=== PATIENT | male | born 1960 | race Caucasian/White ===

== ENCOUNTER 2018-11-02 22:54 | Emergency (ER) | payer OTHER ==
[~2018-11-02] VITALS: Wt 106.4 kg
[2018-11-03] MEDS ORDERED: KETOROLAC 60 MG INJ IM STA (01:31)
[2018-11-03] MEDS ORDERED: MED4DP PO (01:45)
[2018-11-03] MEDS ORDERED: HYDR-4011 PO (01:45)
[2018-11-03] MEDS ORDERED: NAPR-985 PO (01:45)
[2018-11-03] MEDS ORDERED: CYCL10TA7 PO (01:45)
[2018-11-03] MEDS ORDERED: DIAZEPAM 5 MG TAB PO ONE (02:00)
[2018-11-03] MEDS ORDERED: DEXAMETHASONE 10 MG/ML 1 ML INJ IM ONE (02:00)
--- NOTE | 2018-11-03 02:25 | ERD ---
ER Documentation Chief Complaint Chief Complaint LOWER BACK PAIN RADIATING AROUND TO RLQ X'S 1 DAY HPI 58-year-old male presenting with right-sided back pain times 2 days. Patient denies any numbness or tingling to his legs. He states the pain started yesterday but has subsided today. He has had back pain like this before. Patient has had a history of kidney stones. Denies any fevers. Denies any recent traumatic injuries. Denies any weakness or numbness to his extremities. Has normal urination bowel movement. No dysuria. Denies medical problems. NKDA. Surgical history knee surgery. Social history denies ROS All systems reviewed and are negative except as per history of present illness. Medications Home Meds Active Scripts Cyclobenzaprine Hcl* (Cyclobenzaprine Hcl*) 10 Mg Tablet, 10 MG PO TID, #15 TAB Prov:DOUGIE COLBY PA-C 11/03/18 Naproxen* (Naprosyn*) 500 Mg Tablet, 500 MG PO BID PRN for PAIN AND/OR INFLAMMATION, #30 TAB Prov:DOUGIE COLBY PA-C 11/03/18 Hydrocodone/Acetaminophen ([place] 5-325 Tablet) 1 Each Tablet, 1 TAB PO Q6H PRN for PAIN, #7 TAB Prov:DOUGIE COLBY PA-C 11/03/18 Methylprednisolone* (Medrol* DOSE PACK) 4 Mg/Dose-Pack Tab.ds.pk, 4 MG PO . DIRECTED, #1 PACKET Prov:DOUGIE COLBY PA-C 11/03/18 PMhx/Soc Medical and Surgical Hx: pt denies Medical Hx History of Surgery: Yes (left knee replacement, kidney stones removed and nighat eye laser) Anesthesia Reaction: No Hx Alcohol Use: No Hx Substance Use: No Smoking Status: Never smoker FmHx Family History: No diabetes, No coronary disease, No other Physical Exam Vitals Vital Signs Date Temp Pulse Resp B/P (MAP) Pulse Ox O2 O2 Flow FiO2 Time Delivery Rate 11/02/18 98.1 77 20 139/74 96 22:58 (95) Physical Exam GENERAL: The patient is well-appearing, well-nourished, in no acute distress CHEST: Clear to auscultation bilaterally. There are no rales, wheezes or rhonchi. HEART: Regular rate and rhythm. No murmurs, clicks, rubs or gallops. No S3 or S4. ABDOMEN:Soft, nontender and nondistended. Good bowel sounds. No rebound or guarding. No gross peritonitis. No gross organomegaly or masses. BACK: No midline or flank tenderness. Tender to palpation over right paraspinous muscles extending down right buttock. EXTREMITIES: Equal pulses bilaterally. There is no peripheral clubbing, cyanosis or edema. No focal swelling or erythema. Full range of motion. Grossly neurovascularly intact. NEUROLOGIC: Alert and oriented. Cranial nerves II through XII intact. Motor strength in all 4 extremities with 5 out of 5 strength. Sensation grossly intact. Normal speech and gait. Babinski negative. DTR 2+ throughout. SKIN: There is no apparent rash or petechiae. The skin is warm and dry. Results 24 hrs Current Medications Medications Dose Sig/Jamarcus Start Time Status Last (Trade) Ordered Route PRN Stop Time Admin Dose Reason Admin 10 mg ONCE ONCE 11/03/18 DC 11/03/18 Dexamethasone IM 02:00 01:37 (Decadron) 11/03/18 02:01 Diazepam 5 mg ONCE ONCE 11/03/18 DC 11/03/18 (Valium) PO 02:00 01:37 11/03/18 02:01 Ketorolac 60 mg ONCE STAT 11/03/18 DC 11/03/18 Tromethamine IM 01:31 01:38 (Toradol) 11/03/18 01:32 Procedures/MDM ER course: Toradol, Decadron and Valium given ED. On reevaluation patient's pain improved. MDM: 58-year-old male presenting back pain. Patient's pain is palpable and is worse with movement. I believe patient's pain is musculoskeletal and patient will be discharged with supportive medications. I have low suspicion for acute abdominal emergency. Patient is discharged stricter precautions and told to follow-up with primary care within 1-2 days for close evaluation. Patient is told if symptoms change or worsen to immediately return to ER. I do not feel there is indication for blood work or imaging. All questions answered at discharge Departure Diagnosis: Primary Impression: Back pain Condition: Stable Patient Instructions: Back Pain W/ Sciatica Referrals: [facility] YOU HAVE RECEIVED A MEDICAL SCREENING EXAM AND THE RESULTS INDICATE THAT YOU DO NOT HAVE A CONDITION THAT REQUIRES URGENT TREATMENT IN THE EMERGENCY DEPARTMENT. FURTHER EVALUATION AND TREATMENT OF YOUR CONDITION CAN WAIT UNTIL YOU ARE SEEN IN YOUR DOCTORS OFFICE WITHIN THE NEXT 1-2 DAYS. IT IS YOUR RESPONSIBILITY TO MAKE AN APPOINTMENT FOR FOLOW-UP CARE. IF YOU HAVE A PRIMARY DOCTOR --you should call your primary doctor and schedule an appointment IF YOU DO NOT HAVE A PRIMARY DOCTOR YOU CAN CALL OUR PHYSICIAN REFERRAL HOTLINE AT IF YOU CAN NOT AFFORD TO SEE A PHYSICIAN YOU CAN CHOSE FROM THE FOLLOWING [facility] [address] [facility]. [facility] [address] [facility] [address] [facility] [address] [facility] [address] [facility]. [address] Additional Instructions: FOLLOW UP WITH YOUR PRIMARY CARE PHYSICIAN TOMORROW.Return to this facility if you are not improving as expected. DOUGIE COLBY PA-C Nov 03, 2018 02:25
[2018-11-03 02:58] VITALS: BP 123/69; PULSE 66; RESP 18
== END 2018-11-03 02:59 | disposition home or self-care (01) ==
LOC: FTE 22:54
DX: M54.5 Low back pain (principal); Z96.652 Presence of left artificial knee joint
CPT/HCPCS: 96372; J1100; J1885; Z7502; Z7610